=== PATIENT | male | born 1955 | race Caucasian/White ===

== ENCOUNTER → 2025-05-23 06:55 | Outpatient (REF) | payer MEDICARE, OTHER, SELFPAY ==
[2025-05-23 08:39] LABS: Hematocrit 46.4 % (39.0-52.0); Hemoglobin 15.9 g/dL (13.0-18.0); Mean Corp Hgb Conc. 34.3 g/dL (33.0-37.0); Mean Corpuscular Volume 91.5 fL (80.0-94.0); Nucleated Red Blood Cells % 0 % (-); Platelet Count 210 10^3/uL (130-400); Red Cell Dist. Width 13.2 % (11.5-14.5)
[2025-05-23 08:46] LABS: Urine Character Clear (Clear)
[2025-05-23 09:14] LABS: ALT (SGPT) 22 U/L (0-50); AST (SGOT) 37 U/L (17-59); Albumin 4.6 g/dl (3.5-5.0); Alkaline Phosphatase 85 U/L (38-126); Blood Urea Nitrogen 23 mg/dl (9-20); Calcium 9.8 mg/dl (8.4-10.2); Carbon Dioxide 26 mmol/L (22-30); Chloride 108 mmol/L (98-107); Glucose 99 mg/dl (70-99); HDL Cholesterol 53 mg/dl; LDL Cholesterol, Calculated 91 mg/dl; Potassium 4.4 mmol/L (3.5-5.1); Sodium 141 mmol/L (135-145); Total Protein 7.2 g/dl (6.3-8.2); Very Low Density Lipoprotein 26 mg/dl (0-30); eGFR > 60.00
[2025-05-23 09:46] LABS: PSA, Total - Screen 0.87 ng/ml (0.0-4.0)
== END ==
LOC: REG 06:55
PROVIDERS: ATTENDING PHYSICIAN Nurse Practitioner Family; FAMILY PHYSICIAN Internal Medicine Geriatric Medicine
DX: I25.10 Atherosclerotic heart disease of native coronary artery without angina pectoris (principal); E78.2 Mixed hyperlipidemia; Z12.5 Encounter for screening for malignant neoplasm of prostate; M54.9 Dorsalgia, unspecified; M79.604 Pain in right leg; M79.18 Myalgia, other site
CPT/HCPCS: 72110; 73523; 80053; 80061; 81003; 81015; 84443; 85025; 87086; G0103